=== PATIENT | female | born 1955 | race Asian ===

== ENCOUNTER 2019-01-29 17:27 | Emergency (ER) | payer BC ==
[2019-01-29 17:45] VITALS: BP 140/92
[2019-01-29] MEDS ORDERED: DOXYcycline CAP(*) 100 MG PO ONE (17:59)
--- NOTE | 2019-01-29 18:04 | UC ---
Respiratory Complaint HPI - HPI Summary HPI Summary: 63-year-old woman comes in with a chief complaint of upper respiratory tract infection symptoms for 6 days. Patient started with rhinorrhea and a headache. Now she is having more chest congestion. She's been continuing to have fevers. She's also been having body aches. Ibuprofen helps with the symptoms. No headache now. Some upper thoracic back pain, no neck pain at this time. - History of Current Complaint Chief Complaint: UCRespiratory Stated Complaint: FEVER AND COUGH Time Seen by Provider: 01/29/19 17:38 Hx Last Menstrual Period: NOW Pain Intensity: 3 - Allergies/Home Medications Allergies/Adverse Reactions: Allergies Allergy/AdvReac Type Severity Reaction Status Date / Time No Known Allergies Allergy Verified 01/29/19 17:41 Home Medications: Home Medications amLODIPine TAB* [Norvasc 5 mg TAB*] 2.5 mg PO DAILY 01/29/19 [History Confirmed 01/29/19] PMH/Surg Hx/FS Hx/Imm Hx Previously Healthy: Yes Cardiovascular History: Hypertension - Surgical History Surgical History: Yes Surgery Procedure, Year, and Place: LAPAROSCOPY, TONSILLECTOMY - Family History Known Family History: Positive: Non-Contributory - Social History Alcohol Use: Occasionally Substance Use Type: None Smoking Status (MU): Never Smoked Tobacco Review of Systems All Other Systems Reviewed And Are Negative: Yes Constitutional: Positive: Fever, Chills, Fatigue Skin: Positive: Negative Eyes: Positive: Negative ENT: Positive: Nasal Discharge, Sinus Congestion Respiratory: Positive: Cough, Other - SEE HPI Cardiovascular: Positive: Negative Gastrointestinal: Positive: Negative Motor: Positive: Negative Neurovascular: Positive: Negative Musculoskeletal: Positive: Myalgia Neurological: Positive: Headache Psychological: Positive: Negative Is Patient Immunocompromised?: No Physical Exam Triage Information Reviewed: Yes Appearance: No Pain Distress, Well-Nourished, Ill-Appearing - mild Vital Signs: Initial Vital Signs Temp 100.4 F 01/29/19 17:34 Pulse 88 01/29/19 17:34 Resp 12 01/29/19 17:34 BP 140/92 01/29/19 17:34 Pulse Ox 99 01/29/19 17:34 Vital Signs Reviewed: Yes Eye Exam: Normal Eyes: Positive: Conjunctiva Clear ENT: Positive: Pharyngeal erythema, Nasal congestion, TMs normal Neck: Positive: Supple Respiratory: Positive: Lungs clear, Normal breath sounds, No respiratory distress, Other: - Cough Cardiovascular: Positive: RRR Musculoskeletal Exam: Normal Musculoskeletal: Positive: Strength Intact, ROM Intact Neurological Exam: Normal Neurological: Positive: Alert, Muscle Tone Normal Psychological Exam: Normal Psychological: Positive: Age Appropriate Behavior Skin Exam: Normal Respiratory Course/Dx - Course Course Of Treatment: DISCUSSED VIRAL VERSES BACTERIAL INFECTION AND THE ROLE OF ANTIBIOTICS. THE PATIENT PREFERS TO BE ON ANTIBIOTICS AT THIS TIME. Patient continues to have fevers. She also has a cough that occasionally is productive. No headache at this time. Her rhinorrhea has been clear and some yellow. Most probable cause of the fevers is the upper respiratory tract infection and bronchitis. I let the patient know that if she got worse she should get reevaluated in the emergency department. - Differential Dx/Diagnosis Provider Diagnosis: Bronchitis, Upper respiratory infection, Febrile illness Discharge - Sign-Out/Discharge Documenting (check all that apply): Patient Departure All imaging exams completed and their final reports reviewed: No Studies - Discharge Plan Condition: Stable Disposition: HOME Prescriptions: DOXYcycline CAP(*) [DOXYcycline 100MG CAP(*)] 100 mg PO BID #18 cap Patient Education Materials: Fever in Adults (ED), Upper Respiratory Infection (ED), Acute Bronchitis (ED) Referrals: Juno Connelly MD [Primary Care Provider] - Additional Instructions: FOLLOW UP WITH YOUR DOCTOR IF NOT COMPLETELY IMPROVED. GO TO THE EMERGENCY DEPARTMENT IF YOUR CONDITION WORSENS; YOU DO NOT IMPROVE, SHORTNESS OF BREATH, YOU FEEL ILL OR ANY QUESTIONS OR CONCERNS. - Billing Disposition and Condition Condition: STABLE Disposition: Home
== END 2019-01-29 18:21 | disposition home or self-care (01) ==
LOC: UCEAST 17:27
DX: J40 Bronchitis, not specified as acute or chronic (principal); J06.9 Acute upper respiratory infection, unspecified; R50.9 Fever, unspecified; I10 Essential (primary) hypertension
CPT/HCPCS: 99202; A9270-GY; G0463